=== PATIENT | male | born 1950 | race Caucasian/White ===

== ENCOUNTER 2023-02-24 07:27 | Outpatient (CLI) | payer OTHER, SELFPAY | END 2023-02-24 07:28 | disposition home or self-care (01) | PROVIDERS: Visit Provider Dermatology | DX: L80 Vitiligo (principal) | CPT/HCPCS: 96900 ==

== ENCOUNTER 2023-02-28 07:00 | Outpatient (CLI) | payer OTHER, SELFPAY | END 2023-02-28 07:01 | disposition home or self-care (01) | LOC: PUVA 07:00 | PROVIDERS: Visit Provider Dermatology | DX: L80 Vitiligo (principal) | CPT/HCPCS: 96900 ==

== ENCOUNTER 2023-03-03 07:27 | Outpatient (CLI) | payer OTHER, SELFPAY | END 2023-03-03 07:28 | disposition home or self-care (01) | LOC: PUVA 07:27 | PROVIDERS: Visit Provider Dermatology | DX: L80 Vitiligo (principal) | CPT/HCPCS: 96900 ==

== ENCOUNTER 2023-03-07 07:15 | Outpatient (CLI) | payer OTHER, SELFPAY | END 2023-03-07 07:16 | LOC: PUVA 07:15 | PROVIDERS: Visit Provider Dermatology | DX: L80 Vitiligo (principal) | CPT/HCPCS: 96900 ==

== ENCOUNTER 2023-03-10 07:13 | Outpatient (CLI) | payer OTHER, SELFPAY | END 2023-03-10 07:14 | LOC: PUVA 07:13 | PROVIDERS: Visit Provider Dermatology | DX: L80 Vitiligo (principal) | CPT/HCPCS: 96900 ==

== ENCOUNTER 2023-03-14 08:27 | Outpatient (CLI) | payer OTHER, SELFPAY | END 2023-03-14 08:28 | disposition home or self-care (01) | LOC: PUVA 08:27 | PROVIDERS: Visit Provider Dermatology | DX: L80 Vitiligo (principal) | CPT/HCPCS: 96900 ==

== ENCOUNTER 2023-03-17 07:05 | Outpatient (CLI) | payer OTHER, SELFPAY | END 2023-03-17 07:06 | disposition home or self-care (01) | LOC: PUVA 07:05 | PROVIDERS: Visit Provider Dermatology | DX: L80 Vitiligo (principal) | CPT/HCPCS: 96900 ==

== ENCOUNTER 2023-03-21 06:58 | Outpatient (CLI) | payer OTHER, SELFPAY | END 2023-03-21 06:59 | disposition home or self-care (01) | LOC: PUVA 06:59 | PROVIDERS: Visit Provider Dermatology | DX: L80 Vitiligo (principal) | CPT/HCPCS: 96900 ==

== ENCOUNTER 2023-03-24 07:09 | Outpatient (CLI) | payer OTHER, SELFPAY | END 2023-03-24 07:10 | disposition home or self-care (01) | LOC: PUVA 07:09 | PROVIDERS: Visit Provider Dermatology | DX: L80 Vitiligo (principal) | CPT/HCPCS: 96900 ==

== ENCOUNTER 2023-03-28 07:24 | Outpatient (CLI) | payer OTHER, SELFPAY | END 2023-03-28 07:25 | disposition home or self-care (01) | LOC: PUVA 07:24 | PROVIDERS: Visit Provider Dermatology | DX: L80 Vitiligo (principal) | CPT/HCPCS: 96900 ==

== ENCOUNTER 2023-04-04 08:02 | Outpatient (CLI) | payer OTHER, SELFPAY | END 2023-04-04 08:03 | disposition home or self-care (01) | LOC: PUVA 08:02 | PROVIDERS: Visit Provider Dermatology | DX: L80 Vitiligo (principal) | CPT/HCPCS: 96900 ==

== ENCOUNTER 2023-04-07 07:15 | Outpatient (CLI) | payer OTHER, SELFPAY | END 2023-04-07 07:16 | disposition home or self-care (01) | LOC: PUVA 07:15 | PROVIDERS: Visit Provider Dermatology | DX: L80 Vitiligo (principal) | CPT/HCPCS: 96900 ==

== ENCOUNTER 2023-05-12 07:28 | Outpatient (CLI) | payer OTHER, SELFPAY | END 2023-05-12 07:29 | PROVIDERS: Visit Provider Dermatology | DX: L80 Vitiligo (principal) | CPT/HCPCS: 96900 ==

== ENCOUNTER 2023-05-16 07:28 | Outpatient (CLI) | payer OTHER, SELFPAY | END 2023-05-16 07:29 | disposition home or self-care (01) | PROVIDERS: Visit Provider Dermatology | DX: L80 Vitiligo (principal) | CPT/HCPCS: 96900 ==

== ENCOUNTER 2023-05-19 07:04 | Outpatient (CLI) | payer OTHER, SELFPAY | END 2023-05-19 07:05 | disposition home or self-care (01) | LOC: PUVA 07:04 | PROVIDERS: Visit Provider Dermatology | DX: L80 Vitiligo (principal) | CPT/HCPCS: 96900 ==

== ENCOUNTER 2023-05-23 07:07 | Outpatient (CLI) | payer OTHER, SELFPAY | END 2023-05-23 07:08 | disposition home or self-care (01) | LOC: PUVA 07:07 | PROVIDERS: Visit Provider Dermatology | DX: L80 Vitiligo (principal) | CPT/HCPCS: 96900 ==

== ENCOUNTER 2023-05-26 07:02 | Outpatient (CLI) | payer OTHER, SELFPAY | END 2023-05-26 07:03 | LOC: PUVA 07:02 | PROVIDERS: Visit Provider Dermatology | DX: L80 Vitiligo (principal) | CPT/HCPCS: 96900 ==

== ENCOUNTER 2023-05-30 07:16 | Outpatient (CLI) | payer OTHER, SELFPAY | END 2023-05-30 07:17 | disposition home or self-care (01) | LOC: PUVA 07:16 | PROVIDERS: Visit Provider Dermatology | DX: L80 Vitiligo (principal) | CPT/HCPCS: 96900 ==

== ENCOUNTER 2023-06-02 06:55 | Outpatient (CLI) | payer OTHER, SELFPAY | END 2023-06-02 06:56 | disposition home or self-care (01) | LOC: PUVA 06:55 | PROVIDERS: Visit Provider Dermatology | DX: L80 Vitiligo (principal) | CPT/HCPCS: 96900 ==

== ENCOUNTER 2023-08-08 07:14 | Outpatient (CLI) | payer OTHER, SELFPAY | END 2023-08-08 07:15 | disposition home or self-care (01) | LOC: PUVA 07:14 | PROVIDERS: Visit Provider Dermatology | DX: L80 Vitiligo (principal) | CPT/HCPCS: 96900 ==

== ENCOUNTER 2023-08-11 07:04 | Outpatient (CLI) | payer OTHER, SELFPAY | END 2023-08-11 07:05 | disposition home or self-care (01) | LOC: PUVA 07:04 | PROVIDERS: Visit Provider Dermatology | DX: L80 Vitiligo (principal) | CPT/HCPCS: 96900 ==

== ENCOUNTER 2023-08-15 07:12 | Outpatient (CLI) | payer OTHER, SELFPAY | END 2023-08-15 07:13 | disposition home or self-care (01) | LOC: PUVA 07:12 | PROVIDERS: Visit Provider Dermatology | DX: L80 Vitiligo (principal) | CPT/HCPCS: 96900 ==

== ENCOUNTER 2023-08-18 07:03 | Outpatient (CLI) | payer OTHER, SELFPAY | END 2023-08-18 07:04 | disposition home or self-care (01) | LOC: PUVA 07:03 | PROVIDERS: Visit Provider Dermatology | DX: L80 Vitiligo (principal) | CPT/HCPCS: 96900 ==

== ENCOUNTER 2023-08-22 07:14 | Outpatient (CLI) | payer OTHER, SELFPAY | END 2023-08-22 07:15 | disposition home or self-care (01) | LOC: PUVA 07:14 | PROVIDERS: Visit Provider Dermatology | DX: L80 Vitiligo (principal) | CPT/HCPCS: 96900 ==

== ENCOUNTER 2023-08-25 07:04 | Outpatient (CLI) | payer OTHER, SELFPAY | END 2023-08-25 07:05 | disposition home or self-care (01) | LOC: PUVA 07:04 | PROVIDERS: Visit Provider Dermatology | DX: L80 Vitiligo (principal) | CPT/HCPCS: 96900 ==

== ENCOUNTER 2023-08-29 07:11 | Outpatient (CLI) | payer OTHER, SELFPAY | END 2023-08-29 07:12 | disposition home or self-care (01) | LOC: PUVA 07:12 | PROVIDERS: Visit Provider Dermatology | DX: L80 Vitiligo (principal) | CPT/HCPCS: 96900 ==

== ENCOUNTER 2023-09-01 07:09 | Outpatient (CLI) | payer OTHER, SELFPAY | END 2023-09-01 07:10 | disposition home or self-care (01) | LOC: PUVA 07:09 | PROVIDERS: Visit Provider Dermatology | DX: L80 Vitiligo (principal) | CPT/HCPCS: 96900 ==

== ENCOUNTER 2023-09-05 06:59 | Outpatient (CLI) | payer OTHER, SELFPAY | END 2023-09-05 07:00 | disposition home or self-care (01) | LOC: PUVA 07:00 | PROVIDERS: Visit Provider Dermatology | DX: L80 Vitiligo (principal) | CPT/HCPCS: 96900 ==

== ENCOUNTER 2023-09-08 06:57 | Outpatient (CLI) | payer OTHER, SELFPAY | END 2023-09-08 06:58 | disposition home or self-care (01) | LOC: PUVA 06:57 | PROVIDERS: Visit Provider Dermatology | DX: L80 Vitiligo (principal) | CPT/HCPCS: 96900 ==

== ENCOUNTER 2023-09-11 07:41 | Outpatient (CLI) | payer OTHER, SELFPAY | END 2023-09-11 07:42 | disposition home or self-care (01) | LOC: PUVA 07:41 | PROVIDERS: Visit Provider Dermatology | DX: L80 Vitiligo (principal) | CPT/HCPCS: 96900 ==

== ENCOUNTER 2023-09-15 07:22 | Outpatient (CLI) | payer OTHER, SELFPAY | END 2023-09-15 07:23 | disposition home or self-care (01) | LOC: PUVA 07:22 | PROVIDERS: Visit Provider Dermatology | DX: L80 Vitiligo (principal) | CPT/HCPCS: 96900 ==

== ENCOUNTER 2023-09-19 07:30 | Outpatient (CLI) | payer OTHER, SELFPAY | END 2023-09-19 07:31 | disposition home or self-care (01) | LOC: PUVA 07:30 | PROVIDERS: Visit Provider Dermatology | DX: L80 Vitiligo (principal) | CPT/HCPCS: 96900 ==

== ENCOUNTER 2023-09-22 07:22 | Outpatient (CLI) | payer OTHER, SELFPAY | END 2023-09-22 07:23 | disposition home or self-care (01) | LOC: PUVA 07:22 | PROVIDERS: Visit Provider Dermatology | DX: L80 Vitiligo (principal) | CPT/HCPCS: 96900 ==

== ENCOUNTER 2023-09-26 06:57 | Outpatient (CLI) | payer OTHER, SELFPAY | END 2023-09-26 06:58 | disposition home or self-care (01) | LOC: PUVA 06:57 | PROVIDERS: Visit Provider Dermatology | DX: L80 Vitiligo (principal) | CPT/HCPCS: 96900 ==

== ENCOUNTER 2023-09-29 06:55 | Outpatient (CLI) | payer OTHER, SELFPAY | END 2023-09-29 06:56 | disposition home or self-care (01) | LOC: PUVA 06:55 | PROVIDERS: Visit Provider Dermatology | DX: L80 Vitiligo (principal) | CPT/HCPCS: 96900 ==

== ENCOUNTER 2023-10-03 06:58 | Outpatient (CLI) | payer OTHER, SELFPAY | END 2023-10-03 06:59 | disposition home or self-care (01) | LOC: PUVA 06:59 | PROVIDERS: Visit Provider Dermatology | DX: L80 Vitiligo (principal) | CPT/HCPCS: 96900 ==

== ENCOUNTER 2023-10-06 07:15 | Outpatient (CLI) | payer OTHER, SELFPAY | END 2023-10-06 07:16 | disposition home or self-care (01) | LOC: PUVA 07:15 | PROVIDERS: Visit Provider Dermatology | DX: L80 Vitiligo (principal) | CPT/HCPCS: 96900 ==

== ENCOUNTER 2023-10-10 07:00 | Outpatient (CLI) | payer OTHER, SELFPAY | END 2023-10-10 07:01 | disposition home or self-care (01) | LOC: PUVA 07:00 | PROVIDERS: Visit Provider Dermatology | DX: L80 Vitiligo (principal) | CPT/HCPCS: 96900 ==

== ENCOUNTER 2023-10-13 07:07 | Outpatient (CLI) | payer OTHER, SELFPAY | END 2023-10-13 07:08 | disposition home or self-care (01) | LOC: PUVA 07:07 | PROVIDERS: Visit Provider Dermatology | DX: L80 Vitiligo (principal) | CPT/HCPCS: 96900 ==

== ENCOUNTER 2023-10-17 07:03 | Outpatient (CLI) | payer OTHER, SELFPAY | END 2023-10-17 07:04 | disposition home or self-care (01) | LOC: PUVA 07:03 | PROVIDERS: Visit Provider Dermatology | DX: L80 Vitiligo (principal) | CPT/HCPCS: 96900 ==

== ENCOUNTER 2023-10-20 06:59 | Outpatient (CLI) | payer OTHER, SELFPAY | END 2023-10-20 07:00 | disposition home or self-care (01) | LOC: PUVA 07:00 | PROVIDERS: Visit Provider Dermatology | DX: L80 Vitiligo (principal) | CPT/HCPCS: 96900 ==

== ENCOUNTER 2023-10-24 07:08 | Outpatient (CLI) | payer OTHER, SELFPAY | END 2023-10-24 07:09 | disposition home or self-care (01) | LOC: PUVA 07:09 | PROVIDERS: Visit Provider Dermatology | DX: L80 Vitiligo (principal) | CPT/HCPCS: 96900 ==

== ENCOUNTER 2023-10-27 07:07 | Outpatient (CLI) | payer OTHER, SELFPAY | END 2023-10-27 07:08 | disposition home or self-care (01) | LOC: PUVA 07:07 | PROVIDERS: Visit Provider Dermatology | DX: L80 Vitiligo (principal) | CPT/HCPCS: 96900 ==

== ENCOUNTER 2023-10-31 07:06 | Outpatient (CLI) | payer OTHER, SELFPAY | END 2023-10-31 07:07 | disposition home or self-care (01) | LOC: PUVA 07:07 | PROVIDERS: Visit Provider Dermatology | DX: L80 Vitiligo (principal) | CPT/HCPCS: 96900 ==

== ENCOUNTER 2023-11-03 07:11 | Outpatient (CLI) | payer OTHER, SELFPAY | END 2023-11-03 07:12 | disposition home or self-care (01) | LOC: PUVA 07:12 | PROVIDERS: Visit Provider Dermatology | DX: L80 Vitiligo (principal) | CPT/HCPCS: 96900 ==

== ENCOUNTER 2023-11-07 07:24 | Outpatient (CLI) | payer OTHER, SELFPAY | END 2023-11-07 07:25 | disposition home or self-care (01) | LOC: PUVA 07:24 | PROVIDERS: Visit Provider Dermatology | DX: L80 Vitiligo (principal) | CPT/HCPCS: 96900 ==

== ENCOUNTER 2023-11-14 07:15 | Outpatient (CLI) | payer OTHER, SELFPAY | END 2023-11-14 07:16 | disposition home or self-care (01) | LOC: PUVA 07:15 | PROVIDERS: Visit Provider Dermatology | DX: L80 Vitiligo (principal) | CPT/HCPCS: 96900 ==

== ENCOUNTER 2023-11-21 07:07 | Outpatient (CLI) | payer OTHER, SELFPAY | END 2023-11-21 07:08 | disposition home or self-care (01) | LOC: PUVA 07:07 | PROVIDERS: Visit Provider Dermatology | DX: L80 Vitiligo (principal) | CPT/HCPCS: 96900 ==

== ENCOUNTER 2023-11-24 07:39 | Outpatient (CLI) | payer OTHER, SELFPAY | END 2023-11-24 07:40 | disposition home or self-care (01) | LOC: PUVA 07:39 | PROVIDERS: Visit Provider Dermatology | DX: L80 Vitiligo (principal) | CPT/HCPCS: 96900 ==

== ENCOUNTER 2023-11-28 07:01 | Outpatient (CLI) | payer OTHER, SELFPAY | END 2023-11-28 07:02 | disposition home or self-care (01) | LOC: PUVA 07:02 | PROVIDERS: Visit Provider Dermatology | DX: L80 Vitiligo (principal) | CPT/HCPCS: 96900 ==

== ENCOUNTER 2023-12-01 09:32 | Outpatient (CLI) | payer OTHER, SELFPAY | END 2023-12-01 09:33 | disposition home or self-care (01) | LOC: PUVA 12-11 09:32 | PROVIDERS: Visit Provider Dermatology | DX: L80 Vitiligo (principal) | CPT/HCPCS: 96900 ==

== ENCOUNTER 2023-12-08 07:00 | Outpatient (CLI) | payer OTHER, SELFPAY | END 2023-12-08 07:01 | disposition home or self-care (01) | LOC: PUVA 07:00 | PROVIDERS: Visit Provider Dermatology | DX: L80 Vitiligo (principal) | CPT/HCPCS: 96900 ==

== ENCOUNTER 2023-12-12 07:33 | Outpatient (CLI) | payer OTHER, SELFPAY | END 2023-12-12 07:34 | disposition home or self-care (01) | LOC: PUVA 07:33 | PROVIDERS: Visit Provider Dermatology | DX: L80 Vitiligo (principal) | CPT/HCPCS: 96900 ==

== ENCOUNTER 2023-12-15 07:15 | Outpatient (CLI) | payer OTHER, SELFPAY | END 2023-12-15 07:16 | disposition home or self-care (01) | LOC: PUVA 07:15 | PROVIDERS: Visit Provider Dermatology | DX: L80 Vitiligo (principal) | CPT/HCPCS: 96900 ==

== ENCOUNTER 2023-12-19 07:03 | Outpatient (CLI) | payer OTHER, SELFPAY | END 2023-12-19 07:04 | disposition home or self-care (01) | LOC: PUVA 07:04 | PROVIDERS: Visit Provider Dermatology | DX: L80 Vitiligo (principal) | CPT/HCPCS: 96900 ==

== ENCOUNTER 2023-12-22 07:29 | Outpatient (CLI) | payer OTHER, SELFPAY | END 2023-12-22 07:30 | disposition home or self-care (01) | LOC: PUVA 07:29 | PROVIDERS: Visit Provider Dermatology | DX: L80 Vitiligo (principal) | CPT/HCPCS: 96900 ==

== ENCOUNTER 2023-12-26 07:59 | Outpatient (CLI) | payer OTHER, SELFPAY | END 2023-12-26 08:00 | disposition home or self-care (01) | LOC: PUVA 07:59 | PROVIDERS: Visit Provider Dermatology | DX: L80 Vitiligo (principal) | CPT/HCPCS: 96900 ==

== ENCOUNTER 2024-01-02 07:28 | Outpatient (CLI) | payer OTHER, SELFPAY | END 2024-01-02 07:29 | disposition home or self-care (01) | LOC: PUVA 07:28 | PROVIDERS: Visit Provider Dermatology | DX: L80 Vitiligo (principal) | CPT/HCPCS: 96900 ==

== ENCOUNTER 2024-01-05 07:18 | Outpatient (CLI) | payer OTHER, SELFPAY | END 2024-01-05 07:19 | disposition home or self-care (01) | LOC: PUVA 07:18 | PROVIDERS: Visit Provider Dermatology | DX: L80 Vitiligo (principal) | CPT/HCPCS: 96900 ==

== ENCOUNTER 2024-01-09 07:04 | Outpatient (CLI) | payer OTHER, SELFPAY | END 2024-01-09 07:05 | disposition home or self-care (01) | LOC: PUVA 07:04 | PROVIDERS: Visit Provider Dermatology | DX: L80 Vitiligo (principal) | CPT/HCPCS: 96900 ==

== ENCOUNTER 2024-01-12 07:17 | Outpatient (CLI) | payer OTHER, SELFPAY | END 2024-01-12 07:18 | disposition home or self-care (01) | LOC: PUVA 07:17 | PROVIDERS: Visit Provider Dermatology | DX: L80 Vitiligo (principal) | CPT/HCPCS: 96900 ==

== ENCOUNTER 2024-01-16 06:56 | Outpatient (CLI) | payer OTHER, SELFPAY | END 2024-01-16 06:57 | disposition home or self-care (01) | LOC: PUVA 06:56 | PROVIDERS: Visit Provider Dermatology | DX: L80 Vitiligo (principal) | CPT/HCPCS: 96900 ==

== ENCOUNTER 2024-01-26 15:58 | Outpatient (CLI) | payer OTHER, SELFPAY | END 2024-01-26 15:59 | LOC: PUVA 02-05 15:59 | PROVIDERS: Visit Provider Dermatology | DX: L80 Vitiligo (principal) | CPT/HCPCS: 96900 ==

== ENCOUNTER 2024-01-30 15:59 | Outpatient (CLI) | payer OTHER, SELFPAY | END 2024-01-30 16:00 | LOC: PUVA 02-05 16:00 | PROVIDERS: Visit Provider Dermatology | DX: L80 Vitiligo (principal) | CPT/HCPCS: 96900 ==

== ENCOUNTER 2024-02-02 08:56 | Outpatient (CLI) | payer OTHER, SELFPAY | END 2024-02-02 08:57 | disposition home or self-care (01) | LOC: PUVA 08:58 | PROVIDERS: Visit Provider Dermatology | DX: L80 Vitiligo (principal) | CPT/HCPCS: 96900 ==

== ENCOUNTER 2024-02-06 07:30 | Outpatient (CLI) | payer OTHER, SELFPAY | END 2024-02-06 07:31 | disposition home or self-care (01) | LOC: PUVA 07:30 | PROVIDERS: Visit Provider Dermatology | DX: L80 Vitiligo (principal) | CPT/HCPCS: 96900 ==

== ENCOUNTER 2024-02-09 07:35 | Outpatient (CLI) | payer OTHER, SELFPAY | END 2024-02-09 07:36 | disposition home or self-care (01) | LOC: PUVA 07:35 | PROVIDERS: Visit Provider Dermatology | DX: L80 Vitiligo (principal) | CPT/HCPCS: 96900 ==

== ENCOUNTER 2024-02-13 07:04 | Outpatient (CLI) | payer OTHER, SELFPAY | END 2024-02-13 07:05 | disposition home or self-care (01) | LOC: PUVA 07:04 | PROVIDERS: Visit Provider Dermatology | DX: L80 Vitiligo (principal) | CPT/HCPCS: 96900 ==

== ENCOUNTER 2024-02-16 07:59 | Outpatient (CLI) | payer OTHER, SELFPAY | END 2024-02-16 08:00 | disposition home or self-care (01) | LOC: PUVA 07:59 | PROVIDERS: Visit Provider Dermatology | DX: L80 Vitiligo (principal) | CPT/HCPCS: 96900 ==

== ENCOUNTER 2024-02-20 08:22 | Outpatient (CLI) | payer OTHER, SELFPAY | END 2024-02-20 08:23 | disposition home or self-care (01) | LOC: PUVA 08:23 | PROVIDERS: Visit Provider Dermatology | DX: L80 Vitiligo (principal) | CPT/HCPCS: 96900 ==

== ENCOUNTER 2024-02-23 08:07 | Outpatient (CLI) | payer OTHER, SELFPAY | END 2024-02-23 08:08 | disposition home or self-care (01) | LOC: PUVA 08:08 | PROVIDERS: Visit Provider Dermatology | DX: L80 Vitiligo (principal) | CPT/HCPCS: 96900 ==

== ENCOUNTER 2024-02-27 08:01 | Outpatient (CLI) | payer OTHER, SELFPAY | END 2024-02-27 08:02 | disposition home or self-care (01) | LOC: PUVA 08:02 | PROVIDERS: Visit Provider Dermatology | DX: L80 Vitiligo (principal) | CPT/HCPCS: 96900 ==

== ENCOUNTER 2024-03-01 08:03 | Outpatient (CLI) | payer OTHER, SELFPAY | END 2024-03-01 08:04 | disposition home or self-care (01) | LOC: PUVA 08:05 | PROVIDERS: Visit Provider Dermatology | DX: L80 Vitiligo (principal) | CPT/HCPCS: 96900 ==

== ENCOUNTER 2024-03-05 07:53 | Outpatient (CLI) | payer OTHER, SELFPAY | END 2024-03-05 07:54 | disposition home or self-care (01) | LOC: PUVA 07:55 | PROVIDERS: Visit Provider Dermatology | DX: L80 Vitiligo (principal) | CPT/HCPCS: 96900 ==

== ENCOUNTER 2024-03-12 07:56 | Outpatient (CLI) | payer OTHER, SELFPAY | END 2024-03-12 07:57 | disposition home or self-care (01) | LOC: PUVA 07:58 | PROVIDERS: Visit Provider Dermatology | DX: L80 Vitiligo (principal) | CPT/HCPCS: 96900 ==

== ENCOUNTER 2024-03-15 07:54 | Outpatient (CLI) | payer OTHER, SELFPAY | END 2024-03-15 07:55 | disposition home or self-care (01) | LOC: PUVA 07:54 | PROVIDERS: Visit Provider Dermatology | DX: L80 Vitiligo (principal) | CPT/HCPCS: 96900 ==

== ENCOUNTER 2024-03-19 07:56 | Outpatient (CLI) | payer OTHER, SELFPAY | END 2024-03-19 07:57 | disposition home or self-care (01) | LOC: PUVA 07:57 | PROVIDERS: Visit Provider Dermatology | DX: L80 Vitiligo (principal) | CPT/HCPCS: 96900 ==

== ENCOUNTER 2024-03-22 08:00 | Outpatient (CLI) | payer OTHER, SELFPAY | END 2024-03-22 08:01 | disposition home or self-care (01) | LOC: PUVA 08:00 | PROVIDERS: Visit Provider Dermatology | DX: L80 Vitiligo (principal) | CPT/HCPCS: 96900 ==

== ENCOUNTER 2024-03-26 07:55 | Outpatient (CLI) | payer OTHER, SELFPAY | END 2024-03-26 07:56 | disposition home or self-care (01) | LOC: PUVA 07:56 | PROVIDERS: Visit Provider Dermatology | DX: L80 Vitiligo (principal) | CPT/HCPCS: 96900 ==

== ENCOUNTER 2024-03-29 08:42 | Outpatient (CLI) | payer OTHER, SELFPAY | END 2024-03-29 08:43 | disposition home or self-care (01) | LOC: PUVA 08:43 | PROVIDERS: Visit Provider Dermatology | DX: L80 Vitiligo (principal) | CPT/HCPCS: 96900 ==

== ENCOUNTER 2024-04-01 09:37 | Outpatient (CLI) | payer OTHER, SELFPAY | END 2024-04-01 09:38 | disposition home or self-care (01) | LOC: PUVA 09:37 | PROVIDERS: Visit Provider Dermatology | DX: L80 Vitiligo (principal) | CPT/HCPCS: 96900 ==

== ENCOUNTER 2024-04-02 07:57 | Outpatient (CLI) | payer OTHER, SELFPAY | END 2024-04-02 07:58 | disposition home or self-care (01) | LOC: PUVA 07:59 | PROVIDERS: Visit Provider Dermatology | DX: L80 Vitiligo (principal) | CPT/HCPCS: 96900 ==

== ENCOUNTER 2024-04-09 08:06 | Outpatient (CLI) | payer OTHER, SELFPAY | END 2024-04-09 08:07 | disposition home or self-care (01) | LOC: PUVA 08:07 | PROVIDERS: Visit Provider Dermatology | DX: L80 Vitiligo (principal) | CPT/HCPCS: 96900 ==

== ENCOUNTER 2024-04-12 08:07 | Outpatient (CLI) | payer OTHER, SELFPAY | END 2024-04-12 08:08 | disposition home or self-care (01) | LOC: PUVA 08:07 | PROVIDERS: Visit Provider Dermatology | DX: L80 Vitiligo (principal) | CPT/HCPCS: 96900 ==